=== PATIENT | male | born 1995 | race African-American/Black ===

== ENCOUNTER 2019-04-22 17:19 | Emergency (ER) | payer MEDICAID ==
[~2019-04-22] VITALS: Ht 172.7 cm; Wt 99.8 kg
[2019-04-22 17:25] VITALS: Ht 172.7 cm; Wt 99.8 kg
[2019-04-22 17:47] LABS: BASOPHIL % 0.6 % (0-2); PLATELET COUNT 285 x10^3mcL (130-400); RED CELL DISTRIBUTION WIDTH 12.9 % (11.5-14.5)
[2019-04-22 17:49] LABS: CALCIUM 9.2 mg/dL (8.5-10.1); CARBON DIOXIDE 28.6 mmol/L (21-32); CHLORIDE SERUM 103 mmol/L (98-107); CREATININE SERUM 0.8 mg/dL (0.6-1.0); GFR1 > 60 mL/min; GLUCOSE SERUM 98 mg/dL (74-106); POTASSIUM SERUM 3.6 mmol/L (3.5-5.1); SODIUM SERUM 141 mmol/L (136-145)
[2019-04-22 17:54] LABS: ALBUMIN 4.1 g/dL (3.4-5.0); ALKALINE PHOSPHATASE 62 U/L (46-116); ALT/SGPT 59 U/L (14-59); AST/SGOT 20 U/L (15-37); BILIRUBIN TOTAL 0.8 mg/dL (0.20-1.00); TOTAL PROTEIN, SERUM 7.7 g/dL (6.4-8.2)
[2019-04-22 21:20] VITALS: BP 113/59
== END 2019-04-22 21:20 | disposition home or self-care (01) ==
LOC: ED 17:19 → EDSEX 17:19 → ED 21:20
DX: K52.9 Noninfective gastroenteritis and colitis, unspecified (principal)
CPT/HCPCS: J2270; J2405

== ENCOUNTER 2019-04-24 01:50 | Inpatient (IN) | payer MEDICAID ==
[~2019-04-24] VITALS: Ht 172.7 cm; Wt 99.3 kg
[2019-04-24 01:58] VITALS: Ht 172.7 cm; Wt 99.3 kg
--- NOTE | 2019-04-24 02:15 | NUR ---
PATIENT COMES TO ED C/O RLQ ABD PAIN. PER PATIENT HE WAS HERE YESTERDAY AND DIAGNOSED WITH COLITIS. SENT HOME WITH CIPRO, TRAMADOL, AND FLAGYL. PATIENT STATES PAIN IS INTOLERABLE AND CONTINUES TO WORSEN. C/O FREQ EPISODES OF DIARREAH ASSOCIATED WITH NAUSEA AND VOMITING EPISODES X2. MORE THAN 30 EPISODES OF DIARREAH, DARK STOOL PER PATIENT. PATIENT HPLACED ON MONITOR AND PROVIDED WITH EMESIS BAG. AWAITING MSE.
[2019-04-24 03:10] LABS: BASOPHIL % 0.1 % (0-2); CALCIUM 8.7 mg/dL (8.5-10.1); CARBON DIOXIDE 26.6 mmol/L (21-32); CREATININE SERUM 2.1 mg/dL (0.7-1.3); PLATELET COUNT 274 x10^3mcL (130-400); POTASSIUM SERUM 3.7 mmol/L (3.5-5.1)
[2019-04-24 03:15] LABS: ALBUMIN 3.7 g/dL (3.4-5.0); BILIRUBIN TOTAL 0.69 mg/dL (0.20-1.00); TOTAL PROTEIN, SERUM 7.3 g/dL (6.4-8.2)
--- NOTE | 2019-04-24 04:21 | NUR ---
PATIENT RESTING IN ROOM. STATES "MEDS HELPED TAKE THE EDGE OFF BUT MY STOMACH STILL HURTS." PATIENT ADVISED ON MECH OF ACTION OF MEDICATIONS. VERBALIZED UNDERSTANDING. WILL REASSESS.
--- NOTE | 2019-04-24 05:58 | NUR ---
REPORT CALLED AND GIVEN TO PATO CAMARENA ON [facility]ST.
--- NOTE | 2019-04-24 06:51 | NUR ---
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 CAME IN VIA GURNEY ACCOMPANID BY ER STAFF AND . MEDICATED IN ER FOR PAIN, MORPHINE 4MG IV AMD TORADOL 30MG IV. KEPT IN COMFORT, ORIENTED TO ROOM AND DEVICES. WILL ENDORSE CONTINOUS CARE TO AM SHIFT.
--- NOTE | 2019-04-24 07:05 | NUR ---
RECEIVED BEDSIDE REPORT FROM SQUADRON WORKER NURSE AT THIS TIME. PATIENT RESTING COMFORTABLY IN BED. NO APPARENT DISTRESS OR DISCOMFORT NOTED. BREATHING EVEN AND UNLABORED. NO RESPIRATORY DISTRESS OR DISCOMFORT NOTED. PATIENT DENIES CHEST PAIN/PRESSURE. PATIENT C/O ABD PAIN AND NAUSEA. IV ANTIBIOTIC INFUSING AT THIS TIME. IV PATENT AND INTACT. FAMILY MEMBER AT BEDSIDE. ALL QUESTIONS AND CONCERNS ADDRESSED. ALL NEEDS ATTENDED TO. WILL CONTINUE TO MONITOR
--- NOTE | 2019-04-24 08:02 | NUR ---
PATIENT C/O NAUSEA AND VOMITING X1 AT THIS TIME. PATIENT MEDICATED WITH ZOFRAN IVP. PATIENT TOLERATED WELL. NO ADVERSE EFFECTS NOTED. ALL NEEDS ATTENDED TO. WILL CONTINUE TO MONITOR
[2019-04-24 09:38] VITALS: BP 144/86
--- NOTE | 2019-04-24 11:11 | NUR ---
PATIENT C/O BLOODY DIARRHEA AT THIS TIME AND DR AWARE. ALL QUESTIONS AND CONCERNS ADDRESSED. ALL NEEDS ATTENDED TO. WILL PROCEED ORDERED. WILL CONTINUE TO MONITOR
--- NOTE | 2019-04-24 13:59 | NUR ---
ANTIBIOTIC INFUSING AT THIS TIME. PATIENT TOLERATING MEDICATION WELL. NO ADVERSE EFFECTS NOTED. ALL NEEDS ATTENDED TO. WILL CONTINUE TO MONITOR
[2019-04-24 14:28] LABS: UA SPECIFIC GRAVITY <=1.005 (1.005-1.035); microscopic required? YES; urine erythrocyte TRACE (NEGATIVE)
[2019-04-24 14:36] LABS: AMPHETAMINE QUAL UR NONE DETECTED (See below)
--- NOTE | 2019-04-24 15:05 | NUR ---
PATIENT C/O 6/10 GENERALIZED BODY ACHES AT THIS TIME. PATIENT MEDICATED WITH NORCO PRN AT THIS TIME. PATIENT TOLERATED MEDICATION WELL. NO ADVERSE EFFECTS NOTED. ALL NEEDS ATTENDED TO. WILL CONTINUE TO MONITOR
--- NOTE | 2019-04-24 18:00 | NUR ---
DR AG AT BEDSIDE REVIEWING POC WITH PATIENT AT THIS TIME. ALL QUESTIONS AND CONCERNS ADDRESSED. ALL NEEDS ATTENDED TO. WILL CONTINUE TO MONITOR
[2019-04-24 18:07] VITALS: BP 126/64
--- NOTE | 2019-04-24 18:52 | NUR ---
PATIENT RESTING COMFORTABLY IN BED AT THIS TIME. NO APPARENT DISTRESS OR DISCOMFORT NOTED. IV PATENT AND INTACT. ALL QUESTIONS AND CONCERNS ADDRESSED. ALL NEEDS ATTENDED TO. SAFETY PRECAUTIONS MAINTAINED. WILL ENDORSE ALL CARE TO FIELD IRONWORKER NURSE
--- NOTE | 2019-04-24 19:20 | NUR ---
RECEIVED PT FROM DAY SHIFT RN. PT CURRENTLY RESTING IN BED WITH FAMILY AT THE BEDSIDE. PT IS AA&O x4 AND ABLE TO FOLLOW COMMANDS. PT DENIES SOB OR CHEST PAIN AT THIS TIME ON ROOM AIR. BREATHING IS EVEN AND UNLABORED. ABD IS SOFT AND ROUND. PT COMPLAINS OF MINOR NAUSEA AND PAIN BUT STATES HE DOES NOT WANT TO BE MEDICATED AT THIS TIME AND PREFERS TO WAIT. PT IS AMBULATORY. INSTRUCTED PT TO PLEASE CALL FOR ASSISTANCE WHEN ATTEMPTING TO AMBULATE. PT IS AWARE OF THE NEED FOR A STOOL SAMPLE AND TO CALL IF HE HAS A BOWEL MOVEMENT. THERE IS A RAC IV THAT IS CLEAN DRY AND INTACT AT THIS TIME. SAFETY MEASURES ARE IN PLACE. BED IS IN THE LOWEST POSITION. CALL LIGHT IS WITHIN REACH. WILL CONTINUE TO MONITOR PT.
--- NOTE | 2019-04-24 19:48 | NUR ---
PT INSTRUCTED TO DRINK LOTS OF FLUIDS FOR US RENAL. PT EDUCATED TO CALL WHEN HE FEELS THE NEED TO PEE.
[2019-04-24 20:59] VITALS: BP 133/73
--- NOTE | 2019-04-25 00:55 | NUR ---
PT RESTING IN BED WITH EYES CLOSED. FAMILY AT THE BEDSIDE. BREATHING EVEN AND UNLABORED.
--- NOTE | 2019-04-25 04:25 | NUR ---
PT RESTING IN BED WITH AT BEDSIDE. NO DISTRESS NOTED AT THIS TIME.
--- NOTE | 2019-04-25 05:32 | NUR ---
PT AWAKE AT THIS TIME WITH AT THE BEDSIDE. NO DISTRESS NOTED. NO SIGNIFICANT CHANGES NOTED THROUGHOUT THE SHIFT.
[2019-04-25 05:54] VITALS: BP 125/72
[2019-04-25 06:12] LABS: BASOPHIL % 0.2 % (0-2); PLATELET COUNT 278 x10^3mcL (130-400); RED CELL DISTRIBUTION WIDTH 13.3 % (11.5-14.5)
[2019-04-25 06:13] LABS: CALCIUM 8.4 mg/dL (8.5-10.1); CREATININE SERUM 1.7 mg/dL (0.7-1.3); POTASSIUM SERUM 3.3 mmol/L (3.5-5.1)
--- NOTE | 2019-04-25 07:30 | NUR ---
RECEIVED PT FROM METAL MACHINE SETTER RN. Hallie/JODI. MED SURG. DENIES CHEST PAIN/PRESSURE. RESPIRATIONS EQUAL AND UNLABORED ON RA. DENIES SOB AT THIS TIME. PT DENIES ANY ABDOMINAL PAIN AT THIS TIME. PT STATES NAUSEA HAS STOPPED SINCE RECEIVING ZOFRAN THIS AM. IV PATENT AND INFUSING TO RAC. NO REDNESS OR SWELLING NOTED. FAMILY AT BEDSIDE. WILL CONTINUE TO MONITOR. CALL LIGHT IN REACH. BED IN LOWEST POSITION.
[2019-04-25 08:08] VITALS: BP 103/60
--- NOTE | 2019-04-25 09:27 | NUR ---
PT IN BED RESTING. NO ACUTE RESP DISTRESS NOTED ON RA. PT C/O ABDOMINAL PAIN 8/10 SHARP TO RLQ. PT STATES TYLENOL HAS HELPED WITH PAIN. MEDICATED PER EMAR. GIVEN PO MEDS. TOLERATED WELL. IV PATENT AND INFUSING. NO REDNESS OR SWELLING NOTED. FAMILY AT BEDSIDE. PT DENIES ANY N/V AT THIS TIME. WILL CONTINUE TO MONITOR. CALL LIGHT IN REACH. BED IN LOWEST POSITION.
--- NOTE | 2019-04-25 11:25 | NUR ---
PT STANDING UP AT BEDSIDE. PT STATES "EVERYONE SAYS I AM CONSTIPATED BUT I AM HAVING LOOSE STOOLS. THE DOCTOR WANTS TO SEND ME HOME, HOWEVER I AM NOT READY TO GO HOME YET." PT STATES "I STILL DO NOT FEEL WELL AND I AM WORRIED IF I GO HOME I WILL JUST END UP COMING BACK" PAGED DR. VASQUEZ TO INFORM HER OF PT CONCERNS. AWAITING CALL BACK.
--- NOTE | 2019-04-25 11:35 | NUR ---
SPOKE WITH DR. VASQUEZ REGARDING PT CONCERNS. PER DR. VASQUEZ PT WILL BE STAYING ANOTHER NIGHT.
--- NOTE | 2019-04-25 11:43 | NUR ---
PT IN BED RESTING. FAMILY AT BEDSIDE. PT UPDATED HE WILL BE KEPT ONE MORE DAY. PT DENIES ANY PAIN AT THIS TIME. PT DENIES ANY N/V AT THIS TIME. IV PATENT AND INFUSING TO RFA. NO REDNESS OR SWELLING NOTED. PT STATES "I DO NOT WANT ANYTHING SOLID TO EAT. LAST TIME IT MADE ME THROW UP." PT STATES HE WOULD LIKE TO EAT SOUP. WILL CONTINUE TO MONITOR. CALL LIGHT IN REACH. BED IN LOWEST POSITION.
[2019-04-25] MEDS ORDERED: FLA500 PO (12:48)
[2019-04-25] MEDS ORDERED: CIPRO500 MG PO (12:50)
--- NOTE | 2019-04-25 12:54 | NUR ---
SPOKE WITH DR. VASQUEZ REGARDING PT DISCHARGE. PER DR. VASQUEZ THOUGHT PT IN 209 WAS PT THAT WANTED TO STAY. PT STATES THIS PT HAS BEEN CLEARED. SHE WILL SPEAK TO ATTENDING ABOUT KEEPING PT.
--- NOTE | 2019-04-25 14:17 | NUR ---
PT IN BED RESTING. NO ACUTE RESP DISTRESS NOTED ON RA. IV PATENT AND INFUSING TO RFA. IV ANTIBIOTICS INFUSING ORDERED. NO REDNESS OR SWELLING NOTED. PT INFORMED DR. VASQUEZ WOULD LIKE TO SPEAK WITH HIM. PT STATES "I FEEL LOOPY RIGHT NOW I WOULD RATHER WAIT." ENCOURAGED PT TO USE CALL LIGHT WHEN READY TO SPEAK WITH WILL CONTINUE TO MONITOR. CALL LIGHT IN REACH. BED IN LOWEST POSITION.
--- NOTE | 2019-04-25 14:28 | NUR ---
SPOKE WITH DR. VASQUEZ. PT STATES HE IS UNSURE IF HE WANTS TO GO HOME YET. PT STATES HE WANTS TO WAIT A FEW HOURS AND SEE HOW HE FEELS. PER DR. 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
[2019-04-25 15:00] VITALS: BP 103/60
--- NOTE | 2019-04-25 15:10 | NUR ---
PT SITTING UP IN BED. PT ASKING FOR DISCHARGE. PT GIVEN DISCHARGE INSTRUCTIONS. PT ENCOURAGED TO RETURN TO EMERGENCY DEPARTMENT IF ANY WORSENING SYMPTOMS OF FEVER, SOB, DIARRHEA, NAUSEA AND VOMITING. PT STATES "WELL I'M JUST GONNA GO TO [facility], SINCE NO ONE THINKS THERES ANYTHING WRONG WITH ME" PT STATES "I ALREADY TALKED TO THE DOCTOR AND SHES ENCOURAGING ME TO GO, SO I GUESS I'LL JUST GO" PT GIVEN NEW PRESCRIPTIONS FOR CIPRO AND FLAGYL. PT STATES "I ALREADY HAVE THOSE PRESCRIPTIONS AT HOME FROM LAST TIME" PT ENCOURAGED TO FILL NEW PRESCRIPTION AND PT ENCOURAGED TO TAKE ANTIBIOITCS UNTIL COMPLETED TO HELP WITH INFECTION AND PREVENT ANY WORSENING INFECTION. ALL QUESTIONS AND CONCERNS ADDRESSED. IV TO RFA REMOVED CATHETER INTACT, NO REDNESS OR SWELLING NOTED. PT ENCOURAGED TO CALL WHEN READY TO BE TAKEN OFF FLOOR. NO PROBLEMS ENCOUNTERED.
[2019-04-29 17:05] LABS: CK-BB 0 % (0); CK-MB 0 % (0-3); CK-MM 100 % (97-100); MACRO TYPE 1 0 % (Not Observed); MACRO TYPE 2 0 % (Not Observed)
== END 2019-04-25 15:35 | disposition home or self-care (01) | DRG 249 ==
LOC: ED 01:50 → MU 05:11
PROVIDERS: Emergency Medicine; Internal Medicine; Internal Medicine Gastroenterology; ADMIT General Practice
DX: K52.9 Noninfective gastroenteritis and colitis, unspecified (principal); N17.0 Acute kidney failure with tubular necrosis; F12.10 Cannabis abuse, uncomplicated; Z68.33 Body mass index [BMI] 33.0-33.9, adult
CPT/HCPCS: 87046; 87046-59; G0378; J0500; J1885; J1956; J2270; J2405; J3490; J7030; Q0092; Q9967